=== PATIENT | male | born 1945 | race Caucasian/White ===

== ENCOUNTER 2021-10-11 17:38 | Inpatient (IN) | payer OTHER ==
[~2021-10-11] VITALS: Ht 170.2 cm; Wt 106.6 kg
[2021-10-11 19:29] LABS: HEMOGLOBIN 15.5 gm/dl (14.0-17.5); RED BLOOD COUNT 5.06 M/UL (4.20-5.50); WHITE BLOOD COUNT 7.1 K/UL (4.5-11.0)
[2021-10-11 20:18] LABS: BUN/CREATININE RATIO 16 (0-10)
[2021-10-12] MEDS ORDERED: HYDROCODON-ACE1 EAC6 PO (00:26)
[2021-10-12] MEDS ORDERED: HYZAAR 50-12.51 EACH PO (00:26)
[2021-10-12] MEDS ORDERED: TIZANIDINE HCL4 MG PO (00:27)
[2021-10-12] MEDS ORDERED: ELAVIL 50 MG TA50 MG PO (00:27)
[2021-10-12] MEDS ORDERED: FLOMAX 0.4 MG0.4 MG PO (00:28)
[2021-10-12] MEDS ORDERED: REMERON30 MG PO (00:28)
[2021-10-12] MEDS ORDERED: ATENOLOL50 MG PO (00:31)
[2021-10-12] MEDS ORDERED: ALLOPURINOL300 MG PO (00:32)
[2021-10-12] MEDS ORDERED: PROTONIX 40 MG40 M1 PO (00:33)
[2021-10-12] MEDS ORDERED: OMEPRAZOLE40 MG PO (00:33)
[2021-10-12 03:04] LABS: HEMOGLOBIN 16.7 gm/dl (14.0-17.5); RED BLOOD COUNT 5.22 M/UL (4.20-5.50); WHITE BLOOD COUNT 6.9 K/UL (4.5-11.0)
[2021-10-12] MEDS ORDERED: IRBESARTAN-HCT1 EACH PO (08:38)
[2021-10-13 03:54] LABS: RED BLOOD COUNT 4.47 M/UL (4.20-5.50)
[2021-10-14 05:00] LABS: HEMOGLOBIN 13.4 gm/dl (14.0-17.5); RED BLOOD COUNT 4.27 M/UL (4.20-5.50)
[2021-10-14 05:06] LABS: WHITE BLOOD COUNT 5.8 K/UL (4.5-11.0)
[2021-10-14] MEDS ORDERED: PROVENTIL HFA6.7 GM INH (09:50)
[2021-10-14] MEDS ORDERED: ASPIRIN EC81 MG PO (09:50)
[2021-10-14] MEDS ORDERED: DECADRON6 MG PO (09:50)
== END 2021-10-14 13:34 | disposition home or self-care (01) | DRG 177 ==
LOC: ER1 17:38 → MED SURG 4 21:20 → CDU 21:20 → MED SURG 4 22:57
PROVIDERS: Internal Medicine Infectious Disease; Physician Assistant; ADMIT Internal Medicine
PROC: 3E0333Z Introduction of Anti-inflammatory into Peripheral Vein, Percutaneous Approach (ICD-10-PCS; 2021-10-11)
PROC: 3E03329 Introduction of Other Anti-infective into Peripheral Vein, Percutaneous Approach (ICD-10-PCS; 2021-10-11)
PROC: 8E0ZXY6 Isolation (ICD-10-PCS; principal; 2021-10-12)
DX: U07.1 COVID-19 (principal); J96.01 Acute respiratory failure with hypoxia; J12.82 Pneumonia due to coronavirus disease 2019; E87.1 Hypo-osmolality and hyponatremia; F41.9 Anxiety disorder, unspecified; F32.A Depression, unspecified; I12.9 Hypertensive chronic kidney disease with stage 1 through stage 4 chronic kidney disease, or unspecified chronic kidney disease; N18.30 Chronic kidney disease, stage 3 unspecified; G89.29 Other chronic pain; Z96.612 Presence of left artificial shoulder joint; Z79.01 Long term (current) use of anticoagulants; Z79.82 Long term (current) use of aspirin; Z90.49 Acquired absence of other specified parts of digestive tract; Z98.890 Other specified postprocedural states
CPT/HCPCS: 36415; 36600; 71045; 80048; 80053; 82550; 82553; 82803; 83735; 83874; 83880; 84484; 85025; 85379; 86140; 93005; 96374; 96375; 99284; J0456; J0696; J1650; J2405; J7030

== ENCOUNTER 2021-12-14 10:37 | Emergency (ER) | payer OTHER ==
[~2021-12-14 10:37] MED LIST: ALLOPURINOL300 MG PO; ASPIRIN EC81 MG PO; ATENOLOL50 MG PO; DECADRON6 MG PO; ELAVIL 50 MG TA50 MG PO; FLOMAX 0.4 MG0.4 MG PO; HYDROCODON-ACE1 EAC6 PO; HYZAAR 50-12.51 EACH PO; IRBESARTAN-HCT1 EACH PO; OMEPRAZOLE40 MG PO; PROTONIX 40 MG40 M1 PO; PROVENTIL HFA6.7 GM INH; REMERON30 MG PO; TIZANIDINE HCL4 MG PO
[2021-12-14 11:34] LABS: RED BLOOD COUNT 4.72 M/UL (4.20-5.50); WHITE BLOOD COUNT 7.8 K/UL (4.5-11.0)
== END 2021-12-14 13:20 | disposition home or self-care (01) ==
LOC: ER1 10:37
PROVIDERS: Physician Assistant
DX: R04.0 Epistaxis (principal); I10 Essential (primary) hypertension; Z99.81 Dependence on supplemental oxygen; Z86.16 Personal history of COVID-19
CPT/HCPCS: 80048; 85025; 85610; 99283